=== PATIENT | male | born 1945 | race Caucasian/White ===

== ENCOUNTER → 2018-01-10 | Outpatient (REF) | payer MEDICARE ==
[2018-01-10 19:07] LABS: AMORPHOUS SEDIMENT LARGE (NEGATIVE); BACTERIA, URINE AUTO NEGATIVE (NEGATIVE); RBC, URINE AUTO TNTC /HPF (0-3); SQUAMOUS EPITHELIAL CELL UR AU 0 /HPF (0-6); WBC, URINE AUTO 3 /HPF (0-3)
[2018-01-10 22:07] LABS: APPEARANCE, URINE CLOUDY (CLEAR); COLOR, URINE YELLOW (YELLOW)
[2018-01-10 22:08] LABS: BILIRUBIN, URINE AUTO NEGATIVE (NEGATIVE); BLOOD, URINE BLOOD 3+ (NEGATIVE); GLUCOSE, URINE (UA) AUTO NEGATIVE (NEGATIVE); KETONE, URINE AUTO NEGATIVE (NEGATIVE); LEUKOCYTE ESTERASE, URINE AUTO NEGATIVE (NEGATIVE); NITRITE, URINE AUTO NEGATIVE (NEGATIVE); PROTEIN, URINE AUTO NEGATIVE (NEGATIVE); SPECIFIC GRAVITY URINE AUTO 1.018 (1.002-1.035)
== END ==
LOC: M SMT 17:26
DX: N21.0 Calculus in bladder (principal)

== ENCOUNTER → 2018-01-10 | Outpatient (CLI) | payer MEDICARE ==
[2018-01-10 17:58] LABS: HEMATOCRIT 38.2 % (42.0-52.0); HEMOGLOBIN 12.4 g/dl (13.5-17.5); MEAN CORPUSCULAR HGB CONC 32.5 g/dl (32.0-36.5); MEAN CORPUSCULAR VOLUME 92.5 fl (80.0-96.0); PLATELET COUNT, AUTOMATED 292 10^3/uL (150-450); RED BLOOD COUNT 4.13 10^6/uL (4.30-6.10); WHITE BLOOD COUNT 9.4 10^3/uL (4.0-10.0)
[2018-01-10 19:08] LABS: ANION GAP 11 MEQ/L (8-16); BLOOD UREA NITROGEN 27 MG/DL (7-18); CALCIUM LEVEL 9.1 MG/DL (8.8-10.2); CARBON DIOXIDE LEVEL 25 MEQ/L (21-32); CHLORIDE LEVEL 106 MEQ/L (98-107); CREATININE FOR GFR 1.36 MG/DL (0.70-1.30); GLOMERULAR FILTRATION RATE 55.2 (>42); GLUCOSE, FASTING 94 MG/DL (70-100); POTASSIUM SERUM 4.6 MEQ/L (3.5-5.1); SODIUM LEVEL 142 MEQ/L (136-145)
== END ==
LOC: M SMT 15:24
DX: N13.30 Unspecified hydronephrosis (principal); Z12.5 Encounter for screening for malignant neoplasm of prostate; N21.0 Calculus in bladder
CPT/HCPCS: 80048

== ENCOUNTER → 2018-01-17 | Outpatient (CLI) | payer MEDICARE ==
[~2018-01-17] MED LIST: ISOVUE-370 76% 100ML VIAL (Q9967) As Ordered
== END ==
LOC: M RAD 09:20
DX: N13.30 Unspecified hydronephrosis (principal); N21.0 Calculus in bladder; N28.1 Cyst of kidney, acquired; K80.20 Calculus of gallbladder without cholecystitis without obstruction; K76.0 Fatty (change of) liver, not elsewhere classified; K57.30 Diverticulosis of large intestine without perforation or abscess without bleeding
CPT/HCPCS: Q9967

== ENCOUNTER → 2018-02-28 | Outpatient (REF) | payer MEDICARE | LOC: M SMT 13:00 | DX: N21.0 Calculus in bladder (principal) | CPT/HCPCS: 87088; 87186 ==

== ENCOUNTER 2018-03-06 18:08 | Emergency (ER) | payer MEDICARE ==
[2018-03-06 18:46] LABS: KETONE, URINE AUTO RFX NEGATIVE (NEGATIVE); LEUKOCYTE ESTERASE UR AUTO RFX 1+ (NEGATIVE); MUCUS, URINE RFX SMALL (NEGATIVE); NITRITE, URINE AUTO RFX NEGATIVE (NEGATIVE); RBC, URINE AUTO RFX TNTC /HPF (0-3); SPECIFIC GRAVITY UR AUTO RFX 1.014 (1.002-1.035); SQUAM EPITHELIAL CELL UR AURFX 0 /HPF (0-6); WBC, URINE AUTO RFX 19 /HPF (0-3)
== END 2018-03-06 18:45 | disposition home or self-care (01) ==
LOC: M ED 18:08
DX: R33.9 Retention of urine, unspecified (principal); T83.018A Breakdown (mechanical) of other urinary catheter, initial encounter; N40.0 Benign prostatic hyperplasia without lower urinary tract symptoms; Z87.442 Personal history of urinary calculi
CPT/HCPCS: 81001

== ENCOUNTER 2018-03-09 07:50 | Day surgery (SDC) | payer MEDICARE ==
[~2018-03-09] VITALS: Ht 182.9 cm; Wt 78.7 kg
[~2018-03-09 07:50] MED LIST changes: +CIPR500T3 PO; +FLOM0.4C39 PO; -ISOVUE-370 76% 100ML VIAL (Q9967) As Ordered; +LIDOCAINE 1% MDV 20ML VIAL SQ PRN
[2018-03-09] MEDS ORDERED: LR 1,000 ML IV ONE (08:00)
[2018-03-09] MEDS ORDERED: PROPOFOL 200 MG/20 ML VIAL As Ordered ONE ×2 (08:11→12:18)
[2018-03-09] MEDS ORDERED: LIDOCAINE 2% INJ 100 MG/5 ML SDV (FOR ANES.) As Ordered ONE (08:11)
[2018-03-09] MEDS ORDERED: fentaNYL 100 MCG/2 ML INJECTION (J3010) As Ordered ONE (08:11)
[2018-03-09] MEDS ORDERED: MIDAZOLAM INJ 2 MG/2 ML VIAL (J2250) As Ordered ONE (08:11)
[2018-03-09] MEDS ORDERED: ROCURONIUM BROMIDE 50 MG/5 ML VIAL As Ordered ONE (09:28)
[2018-03-09] MEDS ORDERED: CONRAY-60 60% 50ML VIAL (Q9961) As Ordered ONE (09:38)
[2018-03-09] MEDS ORDERED: dexameTHASONE 4 MG/ML 1ML VIAL (J1100) As Ordered ONE (09:51)
[2018-03-09] MEDS ORDERED: PHENYLephrine HCL 500 MCG/5 ML (100MCG/ML) SYRINGE (J2370) As Ordered ONE ×3 (10:23→11:52)
[2018-03-09] MEDS ORDERED: HYDROmorphone HCL 2 MG/ML 1ML VIAL (J1170) As Ordered ONE (10:24)
[2018-03-09] MEDS ORDERED: ePHEDrine SULFATE 25 MG/5 ML(5MG/ML) SYRINGE As Ordered ONE (10:32)
[2018-03-09] MEDS ORDERED: ONDANSETRON 4MG/2ML VIAL (J2405) As Ordered ONE (10:36)
--- NOTE | 2018-03-09 12:35 | REP ---
RETROGRADE PYELOGRAM: SINGLE VIEW. HISTORY: Bladder stone. 17 seconds of fluoroscopy time is reported. FINDINGS: A single last image hold fluoroscopically obtained intraprocedural spot radiograph of the abdomen documents ureteral cannulation, contrast injection. There are no laterality markers visible. Electronically Signed by Adolfo Oliva MD 03/09/2018 06:30 P
[2018-03-09] MEDS ORDERED: ONDANSETRON 4MG/2ML VIAL (J2405) IV PRN (13:15)
[2018-03-09] MEDS ORDERED: PERCOCET 5MG/325MG TAB PO PRN (13:15)
[2018-03-09] MEDS ORDERED: METOCLOPRAMIDE INJ 10MG/2ML VIAL (J2765) IV PRN (13:15)
[2018-03-09] MEDS ORDERED: LR 1,000 ML IV SCH (13:15)
[2018-03-09] MEDS ORDERED: ACETAMINOPHEN TAB 650MG DOSE (2X325MG) PO PRN (13:15)
[2018-03-09] MEDS ORDERED: fentaNYL 100 MCG/2 ML INJECTION (J3010) IV PRN (13:15)
--- NOTE | 2018-03-09 13:33 | REP ---
Prostate sonography: History: Elevated PSA Sonographic findings: Trans rectal prostate sonography demonstrates unremarkable seminal vesicles. Prostate gland is heterogeneously enlarged with calcifications and cystic changes noted. Glandular dimensions are measured at 7.0 x 5.5 x 4.2 cm with a calculated glandular volume of 105.5 ml. Transrectal sonographic guidance provided to Dr. Kuhn who performed trans rectal ultrasound guided needle biopsy procedure . Electronically Signed by Adolfo Oliva MD 03/09/2018 01:24 P
[2018-03-09 15:30] VITALS: BP 117/64
--- NOTE | 2018-03-09 16:52 | RO ---
DATE OF PROCEDURE: 03/09/2018 PREOPERATIVE DIAGNOSIS: Bladder stones, left ureteral stone, elevated prostate specific antigen. POSTOPERATIVE DIAGNOSIS: Bladder stones, left ureteral stone, elevated prostate specific antigen. OPERATIVE PROCEDURE: Cystoscopy, cystolitholapaxy, left ureteroscopy, left retrograde pyelogram with intraoperative interpretation of images, transrectal ultrasound guided prostate biopsy. SURGEON: Ghassan Kuhn MD EXPANDED FUNCTION DENTAL ASSISTANT: None. ANESTHESIA: General. OPERATIVE INDICATIONS: This is a 72-year-old male who was found on recent CT scan to have several large bladder stones as well as an obstructing distal left ureteral stone. He was also found to have an elevated prostate specific antigen of 11.7. He was brought to the operating room today for the above listed procedures. DESCRIPTION OF OPERATION: The patient was brought to the operating room where general anesthesia was induced. Prophylactic antibiotics were infused. He was then placed in the dorsal lithotomy position and prepped and draped in the usual sterile fashion. A rigid cystoscope was inserted through the meatus and advanced to the bladder. Of note, the patient had trilobar benign prostatic hyperplasia with a prominent median lobe. He had at least three to four large bladder stones. At this point, the cystoscope was traded off for a nephroscope and then that was inserted into the bladder. I then utilized the [employer] to fragment all the bladder stones into smaller pieces and suction up the pieces. Any remaining pieces left in the bladder, I removed these with an [employer] evacuator. Once all the bladder stone fragments were removed, I then advanced a guidewire up the left collecting system. I then went up the left collecting system with a short semi-rigid ureteroscope and within the distal to mid ureter no stones were seen. I then examined the proximal ureter as well as the left kidney thoroughly and no stones were seen there either indicating that the stone had passed. A retrograde pyelogram was performed and was notable for mild hydronephrosis with no extravasation. I then withdrew the ureteroscope and removed the wire. At this point I turned my attention to doing the prostate biopsy. The patient was then undraped and repositioned on his side in preparation for prostate biopsy. At this point the oxygen equipment technician took several measurements of the prostate and he had a volume of approximately 105 mL. We then took 12 biopsies of the prostate, six on the right side and six on the left. We obtained biopsies from the apex, apex lateral, mid, mid lateral, base, and base lateral on both sides for a total of 12 biopsies. Once the biopsy was done, the patient was then placed back in supine position and under sterile conditions, he then had an #18-[place] [employer] catheter placed into the bladder. The balloon was filled with 10 mL of sterile water and then a catheter was connected to gravity drainage. This marked the conclusion of the procedure. The patient was then awakened from anesthesia and transported to the recovery room in stable condition. ESTIMATED BLOOD LOSS: 10 mL. COMPLICATIONS: None. SPECIMENS: Bladder stone fragments, prostate biopsies. PLAN: The patient will followup in the clinic in approximately 2 weeks to discuss his biopsy results. We will also at that time determine what we will do about his urinary retention. If the prostate biopsy is positive for cancer, then I would recommend a prostatectomy to treat the cancer as well as get him out of retention. If his prostate biopsy is negative I would recommend doing a button transurethral electrovaporization of the prostate to help with the retention.
[2018-03-17 00:42] LABS: COMMENT Note: (.); Ca Ox Monohydrate 13 % (.); Uric Acid 85 % (.)
== END 2018-03-09 15:50 | disposition home or self-care (01) ==
LOC: M SDC 07:50
PROVIDERS: ATTEND Urology
DX: N21.9 Calculus of lower urinary tract, unspecified (principal); N20.1 Calculus of ureter; R97.20 Elevated prostate specific antigen [PSA]
CPT/HCPCS: 52318; 55700; 74420; 76872; 76998; 82360; 88300; C1769; C1894; G0416; J0690; J1100; J1170; J2250; J2370; J2405; J3010; Q9961

== ENCOUNTER → 2018-04-20 | Outpatient (REF) | payer MEDICARE ==
[~2018-04-20] MED LIST changes: -LIDOCAINE 1% MDV 20ML VIAL SQ PRN
[2018-04-20 14:05] LABS: APPEARANCE, URINE TURBID (CLEAR); BACTERIA, URINE AUTO 1+ (NEGATIVE); BILIRUBIN, URINE AUTO NEGATIVE (NEGATIVE); BLOOD, URINE BLOOD 3+ (NEGATIVE); COLOR, URINE YELLOW (YELLOW); GLUCOSE, URINE (UA) AUTO NEGATIVE (NEGATIVE); KETONE, URINE AUTO NEGATIVE (NEGATIVE); LEUKOCYTE ESTERASE, URINE AUTO 3+ (NEGATIVE); MUCUS, URINE SMALL (NEGATIVE); NITRITE, URINE AUTO NEGATIVE (NEGATIVE); PROTEIN, URINE AUTO 1+ mg/dL (NEGATIVE); RBC, URINE AUTO TNTC /HPF (0-3); SPECIFIC GRAVITY URINE AUTO 1.018 (1.002-1.035); SQUAMOUS EPITHELIAL CELL UR AU 0 /HPF (0-6); UROBILINOGEN, URINE AUTO 0.2 mg/dL (0.0-2.0); WBC, URINE AUTO 125 /HPF (0-3)
== END ==
LOC: M SMT 12:52
PROVIDERS: ATTEND Urology
DX: Z01.818 Encounter for other preprocedural examination (principal); N28.89 Other specified disorders of kidney and ureter

== ENCOUNTER 2018-05-04 12:37 | Day surgery (SDC) | payer MEDICARE ==
[~2018-05-04] VITALS: Ht 182.9 cm; Wt 79.8 kg
[~2018-05-04 12:37] MED LIST changes: +LR 1,000 ML IV ONE
[2018-05-04] MEDS ORDERED: PROPOFOL 200 MG/20 ML VIAL As Ordered ONE (14:24)
[2018-05-04] MEDS ORDERED: dexameTHASONE 4 MG/ML 1ML VIAL (J1100) As Ordered ONE (14:24)
[2018-05-04] MEDS ORDERED: ROCURONIUM BROMIDE 50 MG/5 ML VIAL As Ordered ONE (14:24)
[2018-05-04] MEDS ORDERED: GLYCOPYRROLATE INJ 0.2 MG/ML 2 ML VIAL As Ordered ONE (14:24)
[2018-05-04] MEDS ORDERED: ONDANSETRON 4MG/2ML VIAL (J2405) As Ordered ONE (14:24)
[2018-05-04] MEDS ORDERED: NEOSTIGMINE 10 MG/10 ML VIAL (J2710) As Ordered ONE (14:24)
[2018-05-04] MEDS ORDERED: LIDOCAINE 2% INJ 100 MG/5 ML SDV (FOR ANES.) As Ordered ONE (14:24)
[2018-05-04] MEDS ORDERED: MIDAZOLAM INJ 2 MG/2 ML VIAL (J2250) As Ordered ONE (14:25)
[2018-05-04] MEDS ORDERED: fentaNYL 100 MCG/2 ML INJECTION (J3010) As Ordered ONE ×3 (14:25→17:29)
[2018-05-04] MEDS ORDERED: FUROSEMIDE 100 MG/10 ML VIAL (J1940) As Ordered ONE (18:08)
[2018-05-04] MEDS ORDERED: ONDANSETRON 4MG/2ML VIAL (J2405) IV PRN (19:15)
[2018-05-04] MEDS ORDERED: ACETAMINOPHEN TAB 650MG DOSE (2X325MG) PO PRN (19:15)
[2018-05-04] MEDS ORDERED: PERCOCET 5MG/325MG TAB PO PRN (19:15)
[2018-05-04] MEDS ORDERED: LR 1,000 ML IV SCH (19:15)
[2018-05-04] MEDS ORDERED: fentaNYL 100 MCG/2 ML INJECTION (J3010) IV PRN (19:15)
--- NOTE | 2018-05-04 19:24 | RO ---
DATE OF PROCEDURE: 05/04/2018 PREPROCEDURE DIAGNOSIS: Benign prostatic hyperplasia. POSTPROCEDURE DIAGNOSIS: Benign prostatic hyperplasia. PROCEDURE: Cystoscopy, Button transurethral electrovaporization of the prostate. SURGEON: Ghassan Kuhn MD CORRECTIONAL SUPERVISOR LIEUTENANT: None. ANESTHESIA: General. OPERATIVE INDICATIONS: This is a 72-year-old male with benign prostatic hyperplasia with urinary retention. He is brought to the operating room today for the above listed procedure. DESCRIPTION OF PROCEDURE: The patient was brought to the operating room and general anesthesia was induced. Prophylactic antibiotics were infused. He was then placed in the dorsal lithotomy position and prepped and draped in the usual sterile fashion. At this point a resectoscope was inserted through the urethral meatus and advanced into the bladder using a visual obturator. Once inside the bladder was thoroughly examined and of note both ureteral orifices were not close to the bladder neck. I also made note of the location of verumontanum. The patient had an extremely large median lobe growing in toward the bladder as well. At this point, I used the Button to start vaporizing hyperplastic tissue on the median lobe and then circumferentially at the bladder neck. I then started vaporizing tissue in both lateral lobes. I kept doing this until there was a clear channel established. Throughout the procedure, I made sure not to vaporize too close to the ureteral orifice or distal to the verumontanum. Once satisfied there was a clear channel hemostasis was obtained. Once there was good hemostasis the resectoscope was removed and an #18-[place] catheter was inserted into the bladder. The balloon was then filled with 15 mL of sterile water and fluid drained clear at the end of the procedure. The catheter was connected to gravity drainage and this marked the conclusion of the procedure. The patient was taken out of dorsal lithotomy position, awakened from anesthesia and transported to the recovery room in stable condition. ESTIMATED BLOOD LOSS: 40 mL INTRAOPERATIVE COMPLICATIONS: None SPECIMENS: None PLAN: The patient will followup in clinic in approximately 1 week for catheter removal and voiding trial.
[2018-05-04 21:05] VITALS: BP 124/56
== END 2018-05-04 21:05 | disposition home or self-care (01) ==
LOC: M SDC 12:37
PROVIDERS: ATTEND Urology
DX: N40.1 Benign prostatic hyperplasia with lower urinary tract symptoms (principal); Z79.899 Other long term (current) drug therapy
CPT/HCPCS: 52601; J1100; J1940; J2250; J2405; J2710; J3010

== ENCOUNTER → 2019-03-25 | Outpatient (CLI) | payer MEDICARE ==
[~2019-03-25] MED LIST changes: -LR 1,000 ML IV ONE
--- NOTE | 2019-03-25 15:59 | REP ---
Clinical: Contusion. Technique: AP, lateral, bilateral oblique views of the right elbow. Findings: No obvious acute fracture or dislocation. Anterior and posterior fat pads are in normal position. Lateral view demonstrates posterior swelling with curvilinear calcification suggesting acute/chronic bursitis. Impression: 1. No acute fracture or dislocation. 2. Acute / chronic bursitis. Electronically Signed by Stephon Fox MD 03/25/2019 03:50 P
== END ==
LOC: M WUC 15:33
PROVIDERS: ATTEND Physician Assistant
DX: M70.31 Other bursitis of elbow, right elbow (principal)

== ENCOUNTER 2021-10-28 18:58 | Emergency (ER) | payer MEDICARE ==
[~2021-10-28] VITALS: Ht 182.9 cm; Wt 76.8 kg
[2021-10-28 19:00] VITALS: BP 130/82
== END 2021-10-29 01:10 | disposition left against medical advice (07) ==
LOC: M ED 18:58
DX: Z53.29 Procedure and treatment not carried out because of patient's decision for other reasons (principal)

== ENCOUNTER → 2022-02-14 | Outpatient (CLI) | payer MEDICARE ==
[2022-02-14 09:38] LABS: ALBUMIN 3.5 GM/DL (3.2-5.2); CALCIUM LEVEL 8.9 MG/DL (8.8-10.2); CHOLESTEROL RISK RATIO 4.921 (<5); CREATININE FOR GFR 1.44 MG/DL (0.70-1.30); GLOMERULAR FILTRATION RATE 51.1 (>42); PHOSPHORUS LEVEL 2.9 MG/DL (2.5-4.9); POTASSIUM SERUM 4.2 MEQ/L (3.5-5.1)
== END ==
LOC: M LAB 08:35
PROVIDERS: ATTEND Internal Medicine Cardiovascular Disease
DX: E78.5 Hyperlipidemia, unspecified (principal); I50.42 Chronic combined systolic (congestive) and diastolic (congestive) heart failure

== ENCOUNTER → 2022-03-28 | Outpatient (CLI) | payer MEDICARE ==
[2022-03-28 11:29] LABS: CALCIUM LEVEL 8.9 MG/DL (8.3-10.6); CREATININE FOR GFR 1.41 MG/DL (0.70-1.30); GLOMERULAR FILTRATION RATE 52.3 (>42); POTASSIUM SERUM 4.3 MMOL/L (3.5-5.1)
== END ==
LOC: M LAB 10:25
PROVIDERS: ATTEND Family Medicine
DX: I50.42 Chronic combined systolic (congestive) and diastolic (congestive) heart failure (principal)

== ENCOUNTER → 2022-04-28 | Outpatient (CLI) | payer MEDICARE ==
[2022-04-28 18:46] LABS: BASO # 0.1 10^3/uL (0.0-0.2); BASO % 0.8 % (0.0-1.0); EOS # 0.6 10^3/uL (0.0-0.5); EOS % 7.4 % (0.0-3.0); HEMATOCRIT 40.1 % (42.0-52.0); HEMOGLOBIN 12.4 g/dl (13.5-17.5); LYMPH # 1.4 10^3/uL (1.5-5.0); LYMPH % 18.2 % (24.0-44.0); MEAN CORPUSCULAR HEMOGLOBIN 30.4 pg (27.0-33.0); MEAN CORPUSCULAR HGB CONC 30.9 g/dl (32.0-36.5); MEAN CORPUSCULAR VOLUME 98.3 fl (80.0-96.0); MONO # 0.7 10^3/uL (0.0-0.8); NEUTROPHILS # 4.9 10^3/uL (1.5-8.5); NEUTROPHILS % 64.3 % (36.0-66.0); PLATELET COUNT, AUTOMATED 209 10^3/uL (150-450); RED BLOOD COUNT 4.08 10^6/uL (4.30-6.10); WHITE BLOOD COUNT 7.6 10^3/uL (4.0-10.0)
[2022-04-28 19:09] LABS: ALBUMIN 3.4 G/DL (3.2-5.2); BILIRUBIN,TOTAL 0.7 MG/DL (0.3-1.2); CALCIUM LEVEL 8.8 MG/DL (8.3-10.6); CREATININE FOR GFR 1.92 MG/DL (0.70-1.30); GLOMERULAR FILTRATION RATE 36.6 (>42); PERCENT SATURATION 19.3 % (19.7-50.0); POTASSIUM SERUM 4.4 MMOL/L (3.5-5.1); TOTAL PROTEIN 6.8 G/DL (5.7-8.2)
[2022-04-28 19:11] LABS: FERRITIN 375.5 NG/ML (10.5-307.3)
== END ==
LOC: M LAB 18:06
PROVIDERS: ATTEND Internal Medicine
DX: R94.31 Abnormal electrocardiogram [ECG] [EKG] (principal); I50.22 Chronic systolic (congestive) heart failure; I35.1 Nonrheumatic aortic (valve) insufficiency

== ENCOUNTER → 2022-05-30 | Outpatient (CLI) | payer MEDICARE ==
[2022-05-30 14:52] LABS: ALBUMIN 3.5 G/DL (3.2-5.2); ALKALINE PHOSPHATASE 208 U/L (46-116); ALT/SGPT 28 U/L (7.0-40); AST/SGOT 30 U/L (<34); BILIRUBIN,DIRECT 0.3 MG/DL (<0.4); IRON (FE) 97 UG/DL (65-175); PERCENT SATURATION 32.3 % (19.7-50.0); TOTAL IRON BINDING CAPACITY 300 UG/DL (250-425); TOTAL PROTEIN 7.2 G/DL (5.7-8.2)
[2022-05-30 14:54] LABS: FERRITIN 442.1 NG/ML (10.5-307.3)
[2022-05-30 18:42] LABS: HEPATITIS B CORE ANTIBODY IGM NEGATIVE (NEGATIVE); HEPATITIS B SURFACE ANTIGEN NEGATIVE (NEGATIVE); HEPATITIS C VIRUS ABY INDEX < 0.0 INDEX (<0.8)
== END ==
LOC: M LAB 13:33
PROVIDERS: ATTEND Family Medicine
DX: R74.01 Elevation of levels of liver transaminase levels (principal)

== ENCOUNTER → 2022-05-30 | Outpatient (CLI) | payer MEDICARE ==
[2022-05-30 14:39] LABS: CALCIUM LEVEL 9.1 MG/DL (8.3-10.6); CREATININE FOR GFR 1.58 MG/DL (0.70-1.30); GLOMERULAR FILTRATION RATE 45.9 (>42); POTASSIUM SERUM 5.4 MMOL/L (3.5-5.1)
== END ==
LOC: M LAB 13:37
PROVIDERS: ATTEND Internal Medicine Cardiovascular Disease
DX: I50.42 Chronic combined systolic (congestive) and diastolic (congestive) heart failure (principal)

== ENCOUNTER → 2022-06-09 | Outpatient (CLI) | payer MEDICARE ==
[2022-06-09 19:22] LABS: CALCIUM LEVEL 8.4 MG/DL (8.3-10.6); CREATININE FOR GFR 2.19 MG/DL (0.70-1.30); GLOMERULAR FILTRATION RATE 31.5 (>42); POTASSIUM SERUM 5.2 MMOL/L (3.5-5.1)
== END ==
LOC: M LAB 18:36
PROVIDERS: ATTEND Internal Medicine Cardiovascular Disease
DX: E87.5 Hyperkalemia (principal)

== ENCOUNTER → 2022-08-03 | Outpatient (CLI) | payer MEDICARE | LOC: M WUC 11:24 | PROVIDERS: ATTEND Nurse Practitioner Family | DX: M79.672 Pain in left foot (principal) ==

== ENCOUNTER → 2024-11-22 | Outpatient (CLI) | payer MEDICARE ==
[~2024-11-22] MED LIST changes: -FLOM0.4C39 PO; +TAMS-18 PO
[2024-11-22 11:11] LABS: BASO # 0.1 10^3/uL (0.0-0.2); BASO % 0.6 % (0.0-1.0); EOS # 0.3 10^3/uL (0.0-0.5); EOS % 3.5 % (0.0-3.0); LYMPH # 2.2 10^3/uL (1.5-5.0); LYMPH % 25.7 % (24.0-44.0); MONO # 0.8 10^3/uL (0.0-0.8); MONO % 9.8 % (2.0-8.0); NEUTROPHILS # 5.1 10^3/uL (1.5-8.5); NEUTROPHILS % 60.2 % (36.0-66.0); PLATELET COUNT, AUTOMATED 244 10^3/uL (150-450)
[2024-11-22 11:30] LABS: PSA SCREENING 7.88 NG/ML (< 4.00)
[2024-11-22 11:34] LABS: ALT/SGPT 15.0 U/L (7.0-40); AST/SGOT 17.0 U/L (<34); CALCIUM LEVEL 8.8 MG/DL (8.3-10.6); CARBON DIOXIDE LEVEL 24.0 MMOL/L (20-31); CHLORIDE LEVEL 109.0 MMOL/L (98-107); CHOLESTEROL LEVEL 175.0 MG/DL (<200); CHOLESTEROL RISK RATIO 5.1 (<5); CREATININE FOR GFR 1.81 MG/DL (0.70-1.30); GLOMERULAR FILTRATION RATE 38.0 (>42); LDL CHOLESTEROL 122.1 MG/DL (<100); NON-HDL-C 140.7 MG/DL; POTASSIUM SERUM 4.8 MMOL/L (3.5-5.1); SODIUM LEVEL 146.0 MMOL/L (136-145); TRIGLYCERIDES LEVEL 93.0 MG/DL (<150)
== END ==
LOC: M PLALAB 08:55
PROVIDERS: ATTEND Family Medicine
DX: Z00.00 Encounter for general adult medical examination without abnormal findings (principal); N40.1 Benign prostatic hyperplasia with lower urinary tract symptoms; Z12.5 Encounter for screening for malignant neoplasm of prostate; Z79.899 Other long term (current) drug therapy
CPT/HCPCS: 36415; 80053; 80061; 85025; G0103

== ENCOUNTER → 2025-01-01 | Outpatient (CLI) | payer MEDICARE ==
[2025-01-01 11:27] LABS: BASO # 0.0 10^3/uL (0.0-0.2); BASO % 0.4 % (0.0-1.0); EOS # 0.2 10^3/uL (0.0-0.5); EOS % 3.0 % (0.0-3.0); LYMPH # 1.9 10^3/uL (1.5-5.0); LYMPH % 24.7 % (24.0-44.0); MONO # 0.7 10^3/uL (0.0-0.8); MONO % 9.4 % (2.0-8.0); NEUTROPHILS # 4.8 10^3/uL (1.5-8.5); NEUTROPHILS % 62.2 % (36.0-66.0); PLATELET COUNT, AUTOMATED 254 10^3/uL (150-450)
[2025-01-01 11:55] LABS: PROSTATIC SPECIFIC AG MONITOR 3.69 NG/ML (< 4.00)
[2025-01-01 11:57] LABS: IRON (FE) 53 UG/DL (65-175); PERCENT SATURATION 20.0 % (19.7-50.0)
[2025-01-01 11:59] LABS: VITAMIN B12 LEVEL 394 PG/ML (211-911)
== END ==
LOC: M PLALAB 08:15
PROVIDERS: ATTEND Family Medicine
DX: R97.20 Elevated prostate specific antigen [PSA] (principal); D50.9 Iron deficiency anemia, unspecified

== ENCOUNTER → 2025-03-13 | Outpatient (CLI) | payer MEDICARE ==
[2025-03-13 14:16] LABS: BASO # 0.0 10^3/uL (0.0-0.2); BASO % 0.5 % (0.0-1.0); EOS # 0.3 10^3/uL (0.0-0.5); EOS % 4.3 % (0.0-3.0); LYMPH # 1.8 10^3/uL (1.5-5.0); LYMPH % 23.4 % (24.0-44.0); MONO # 0.7 10^3/uL (0.0-0.8); MONO % 8.7 % (2.0-8.0); NEUTROPHILS # 4.9 10^3/uL (1.5-8.5); NEUTROPHILS % 62.7 % (36.0-66.0); PLATELET COUNT, AUTOMATED 257 10^3/uL (150-450)
[2025-03-13 14:19] LABS: PSA SCREENING 3.97 NG/ML (< 4.00)
[2025-03-13 14:24] LABS: IRON (FE) 64.0 UG/DL (65-175)
[2025-03-13 14:25] LABS: PERCENT SATURATION 22.5 % (19.7-50.0)
[2025-03-13 14:26] LABS: VITAMIN B12 LEVEL 530.0 PG/ML (211-911)
== END ==
LOC: M PLALAB 08:41
PROVIDERS: ATTEND Family Medicine
DX: D64.9 Anemia, unspecified (principal); Z12.5 Encounter for screening for malignant neoplasm of prostate
CPT/HCPCS: 36415; 82607; 82728; 82746; 83550; 85025; G0103